=== PATIENT | male | born 1930 | race Caucasian/White ===

== ENCOUNTER → 2019-11-30 | Outpatient (CLI) | payer OTHER ==
[~2019-11-30] VITALS: Ht 180.3 cm; Wt 83.0 kg
[~2019-11-30] MED LIST: ACETAMINOP160 MG/51 PO; ALLOPURINOL 10100 M3 PO; DALIRESP500 MCG PO; FIBERCON625 M1 PO; FLOMAX0.4 MG PO; FLORANEX TABLE1 EACH PO; GLYCOLAX119 GM PO; IPRATROPIUM BRO30 ML NASAL; LEVALBUTER1.25 MG/3 INH; LINZESS145 MCG PO; LIPITOR 20 MG T20 M1 PO; MELATONIN5 MG SUBLING; MONTELUKAST SODI4 M1 PO; NIVEA192 GM TOP; NORVASC 2.5 MG2.5 M1 PO; SLOW FE142 MG PO; SODIUM BICARBO650 M3 PO; STIOLTO RESPIMAT4 GM INH; TUMS200 MG PO; UNICOMPLEX M TA1 TA1 PO
[2019-11-30 13:00] VITALS: BP 136/84
[2019-11-30 14:35] VITALS: BP 142/78
--- NOTE | 2019-11-30 14:57 | NUR ---
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 ADMISSION HISTORY AND ASSESSMENT COMPLETED. MEDICATION RECONCILED. VERY PLEASANT AND COOPERATIVE. IV STARTED IN RAC WITHOUT DIFFICULTY. INFUSED INJECTAFER OVER 30 MINUTES AND TOLERATED WELL. OBSERVED FOR 30 MINUTES WITH NO ADVERSE REACTION NOTED. POST BP GOOD. REMOVED IV AND DISMISSED IN WEAK BUT STABLE CONDITION. SON WITH PATIENT. SCHEDULED TO RETURN NEXT SATURDAY AT 1400.
== END ==
LOC: OPONC 11:46
DX: E11.22 Type 2 diabetes mellitus with diabetic chronic kidney disease (principal); I12.0 Hypertensive chronic kidney disease with stage 5 chronic kidney disease or end stage renal disease; N18.5 Chronic kidney disease, stage 5; D63.1 Anemia in chronic kidney disease; E83.39 Other disorders of phosphorus metabolism; J06.9 Acute upper respiratory infection, unspecified
CPT/HCPCS: 95000

== ENCOUNTER → 2019-12-08 | Outpatient (CLI) | payer OTHER ==
[2019-12-08 14:29] VITALS: BP 143/60
[2019-12-08 15:50] VITALS: BP 157/62
--- NOTE | 2019-12-08 16:02 | NUR ---
IN FOR 2ND INJECTAFER INFUSION. STATED HAD NO SIDE EFFECTS FROM 1ST INFUSION LAST WEEK. IV STARTED IN LAC. INFUSED INJECTAFER OVER 35 MINUTES AND TOLERATED WELL. OBSERVED FOR 30 MINUTES. POST BP GOOD. REMOVED IV AND DISMISSED IN STABLE CONDITION.
== END ==
LOC: OPONC 08:42
PROVIDERS: ATTEND Internal Medicine Nephrology
DX: N18.5 Chronic kidney disease, stage 5 (principal); D63.1 Anemia in chronic kidney disease
CPT/HCPCS: 95000